=== PATIENT | female | born 1980 ===

== ENCOUNTER 2020-05-29 12:30 | Observation (INO) ==
[2020-05-29 13:40] LABS: ABS Basophils 0.1 10^3/ul (0-0.2); ABS Eosinophils 0.1 10^3/ul (0-0.6); ABS Lymphocytes 2.7 10^3/ul (1.0-4.8); ABS Monocytes 0.6 10^3/ul (0-0.8); ABS Neutrophils 6.7 10^3/ul (1.5-7.7); Eosinophil % 1.1 %; Hematocrit 42 % (35-47); Hemoglobin 14.4 g/dL (12.0-16.0); Lymphocyte % 26.5 %; Mean Corpuscular HGB Conc 34 g/dL (31-36); Mean Corpuscular Hemoglobin 31 pg (27-31); Mean Corpuscular Volume 90 fL (80-97); Mean Platelet Volume 8.6 fL (7.4-10.4); Nucleated Red Blood Cells % 0.1; Platelet Count 271 10^3/uL (150-450); Red Blood Count 4.69 10^6 /uL (3.70-4.87); Red Cell Distribution Width 13 % (10-15); White Blood Count 10.2 10^3/uL (3.5-10.8)
[2020-05-29 14:07] LABS: ALT 25 U/L (7-52); AST 17 U/L (13-39); Albumin 4.1 g/dL (3.2-5.2); Albumin/Globulin Ratio 1.4 (1-3); Alkaline Phosphatase 62 U/L (34-104); Anion Gap 10 mmol/L (2-11); BUN/Creatinine Ratio 13.3 (8-20); Blood Urea Nitrogen 13 mg/dL (6-24); C Reactive Protein 47.41 mg/L (<8.01); CO2 Carbon Dioxide 21 mmol/L (22-32); Calcium 9.3 mg/dL (8.6-10.3); Chloride 106 mmol/L (101-111); EGFR African American 76.1 (>60); EGFR Non-African American 62.9 (>60); Glucose 91 mg/dL (70-100); Sodium 137 mmol/L (135-145); Total Protein 7.1 g/dL (6.4-8.9); Troponin I 0.09 ng/mL (<0.03)
[2020-05-29] MEDS ORDERED: Iohexol 350 (CONTRAST) 500 ML MDV IV ONE (14:13)
[2020-05-29 15:34] LABS: HIV 4th Generation Nonreactive (Nonreactive)
[2020-05-29] MEDS ORDERED: NS 0.9% 1000 ml BAG 1,000 ML IV SCH (17:00)
[2020-05-29] MEDS ORDERED: NS 0.45% 1000 ml BAG 1,000 ML IV SCH (17:00)
[2020-05-29 17:15] LABS: Troponin I 0.08 ng/mL (<0.03)
[2020-05-29 20:26] LABS: Troponin I 0.06 ng/mL (<0.03)
[2020-05-30 07:28] LABS: ABS Eosinophils 0.2 10^3/ul (0-0.6); ABS Lymphocytes 3.1 10^3/ul (1.0-4.8); ABS Monocytes 0.5 10^3/ul (0-0.8); ABS Neutrophils 4.4 10^3/ul (1.5-7.7); Eosinophil % 2.7 %; Hematocrit 36 % (35-47); Lymphocyte % 37.3 %; Mean Corpuscular HGB Conc 36 g/dL (31-36); Mean Corpuscular Hemoglobin 32 pg (27-31); Mean Corpuscular Volume 89 fL (80-97); Mean Platelet Volume 9.1 fL (7.4-10.4); Platelet Count 246 10^3/uL (150-450); Red Blood Count 4.09 10^6 /uL (3.70-4.87); Red Cell Distribution Width 13 % (10-15); White Blood Count 8.3 10^3/uL (3.5-10.8)
[2020-05-30 07:39] LABS: BUN/Creatinine Ratio 10.1 (8-20); Calcium 8.7 mg/dL (8.6-10.3); EGFR African American 75.2 (>60); EGFR Non-African American 62.1 (>60); Potassium 4.3 mmol/L (3.5-5.0)
[2020-05-30 11:21] VITALS: BP 125/75
[2020-05-30] MEDS ORDERED: Influenza VAC *QUAD* 2020-21* 0.5 ML SYRINGE IM ONE (14:00)
[2020-06-01 10:48] LABS: DRVVT Screen Ratio 1.08 ratio (<1.20); LAC APTT 28 sec (25 - 37); Prothrombin Time(LAC) 11.1 sec (9.4 - 12.5)
[2020-06-04 15:02] LABS: Factor V Leiden Mutation Negative (Negative); Prothrombin 20210 Mutation Negative (Negative)
== END 2020-05-30 15:16 | disposition home or self-care (01) ==
LOC: MEDTELE 12:30 → ED 12:30 → MEDTELE 16:59
PROVIDERS: ADMIT Hospitalist; ATTEND Internal Medicine